=== PATIENT | female | born 1970 | race Caucasian/White ===

== ENCOUNTER 2021-09-19 08:51 | Outpatient (CLI) | payer MEDICARE, MEDICAID, SELFPAY ==
[2021-09-19] MEDS: Albuterol HFA 18 GM 200 PUFF INH IH (14:28)
[2021-09-19] MEDS: Inhaler, Assist Device 1 EACH MC (14:28)
== END 2021-09-19 08:52 | disposition home or self-care (01) ==
PROVIDERS: PCP Nurse Practitioner; Visit Provider Student in an Organized Health Care Education/Training Program
DX: J44.9 Chronic obstructive pulmonary disease, unspecified (principal)
CPT/HCPCS: 94060; 94726; 94729

== ENCOUNTER 2021-12-19 16:56 | Outpatient (REF) | payer MEDICARE, MEDICAID, SELFPAY ==
[2021-12-21 08:00] LABS: IgE 62 IU/mL (<158)
[2021-12-22 14:20] LABS: Bermuda Grass IgE <0.35 kU/L; Cat Epithelium IgE <0.35 kU/L; Cedar, IgE <0.35 kU/L
[2021-12-22 16:29] LABS: Horse Dander, IgE <0.35 kU/L; House Dust/Greer Lab, IgE <0.35 kU/L; Silver Birch IgE 0.84 kU/L
[2021-12-22 17:37] LABS: Aspergillus Fumigatus IgE <0.35 kU/L; Cockroach IgE <0.35 kU/L; Cottonwood IgE <0.35 kU/L; D Pteronyssinus IgE <0.35 kU/L; Dog Dander IgE <0.35 kU/L; Short Ragweed IgE <0.35 kU/L
[2021-12-22 17:38] LABS: Botrytis Cinerea IgE <0.35 kU/L; False Ragweed, IgE <0.35 kU/L; Goldenrod IgE <0.35 kU/L; White Pine, IgE <0.35 kU/L
[2021-12-22 17:47] LABS: Douglas Fir, IgE <0.35 kU/L
== END 2021-12-19 16:57 | disposition home or self-care (01) ==
LOC: LBN 16:56
PROVIDERS: PCP Nurse Practitioner; Visit Provider Student in an Organized Health Care Education/Training Program
DX: J30.89 Other allergic rhinitis (principal); J44.9 Chronic obstructive pulmonary disease, unspecified; Z01.82 Encounter for allergy testing
CPT/HCPCS: 82785; 86003

== ENCOUNTER → 2023-09-20 09:52 | Outpatient (BNVA) | payer MEDICARE, MEDICAID, SELFPAY | PROVIDERS: PCP Nurse Practitioner; Referring Provider Nurse Practitioner; Visit Provider Student in an Organized Health Care Education/Training Program | DX: J44.9 Chronic obstructive pulmonary disease, unspecified (principal); J30.9 Allergic rhinitis, unspecified; Z14.8 Genetic carrier of other disease; Z87.891 Personal history of nicotine dependence | CPT/HCPCS: 99214 ==

== ENCOUNTER → 2024-03-18 09:44 | Outpatient (BNVA) | payer MEDICARE, MEDICAID, SELFPAY | PROVIDERS: PCP Nurse Practitioner; Referring Provider Nurse Practitioner; Visit Provider Internal Medicine | DX: J44.9 Chronic obstructive pulmonary disease, unspecified (principal); G47.33 Obstructive sleep apnea (adult) (pediatric); J30.9 Allergic rhinitis, unspecified; Z87.891 Personal history of nicotine dependence; Z14.8 Genetic carrier of other disease | CPT/HCPCS: 99215 ==

== ENCOUNTER 2024-03-25 02:47 | Outpatient (CLI) | payer MEDICARE, MEDICAID, SELFPAY ==
[2024-03-25] MEDS: Levalbuterol HFA 15 GM INH 4 PUFF IH (09:31)
[2024-03-25] MEDS: Inhaler, Assist Device 1 EACH MC (09:31)
--- NOTE | 2024-03-25 12:55 | PFT_ITS ---
Date of service: 03/25/24 Time of Service: 08:08 Pulmonary Function Test Result Requesting Provider Darron Navas MD Indications: Asthma COPD dyspnea, chronic cough. Seasonal allergies, [id number] smoker, quit 20 years ago. Test done on [employer]. Albuterol held before test Interpretation Spirometry: Spirometry pre and postbronchodilator showed: 1. Mild airway obstruction at baseline, which normalized postbronchodilator. 2. No clinically significant response to bronchodilator; the FEV1 increased 6%, FVC 0%. 3. The household appliances service technician comments indicated a good patient effort. 4. The test met [employer] [employer] standards of spirometry, and my personal review of the volume-time curve and flow-volume loop corroborates these results. Lung Volumes: Lung volume studies by plethysmography show: 1. No evidence of restriction. 2. Mild hyperinflation as indicated by RV and RV/TLC 130% predicted. 3. Severely decreased expiratory reserve volume, likely related to obesity. BMI 37.8 during this test. Diffusion Capacity: Diffuse and capacity by single breath carbon monoxide technique was normal. No gas exchange abnormality. Impression Normal spirometry after bronchodilator. In the presence of mild hyperinflation, this is most compatible with incompletely treated asthma. Clinical Correlation and radiographic correlation of the hyperinflation is recommended. Consider increasing the dose of inhaled corticosteroid to better control hyperinflation and the baseline mild airway obstruction.
== END 2024-03-25 02:48 | disposition home or self-care (01) ==
LOC: RT 02:47
PROVIDERS: PCP Nurse Practitioner; Visit Provider Internal Medicine
DX: J44.9 Chronic obstructive pulmonary disease, unspecified (principal); R05.3 Chronic cough; Z87.891 Personal history of nicotine dependence
CPT/HCPCS: 00123; 94060; 94726; 94729

== ENCOUNTER → 2024-04-01 10:09 | Outpatient (BNVA) | payer MEDICARE, MEDICAID, SELFPAY | PROVIDERS: PCP Nurse Practitioner; Referring Provider Nurse Practitioner; Visit Provider Physician Assistant Surgical | DX: J44.9 Chronic obstructive pulmonary disease, unspecified (principal); Z14.8 Genetic carrier of other disease; Z87.891 Personal history of nicotine dependence; J30.9 Allergic rhinitis, unspecified | CPT/HCPCS: 99214 ==

== ENCOUNTER → 2024-07-31 09:01 | Outpatient (BNVA) | payer MEDICARE, MEDICAID, SELFPAY | PROVIDERS: PCP Nurse Practitioner; Referring Provider Nurse Practitioner; Visit Provider Physician Assistant Surgical | DX: J44.9 Chronic obstructive pulmonary disease, unspecified (principal); Z14.8 Genetic carrier of other disease; Z87.891 Personal history of nicotine dependence | CPT/HCPCS: 99214 ==

== ENCOUNTER → 2024-12-10 11:36 | Outpatient (BNVA) | payer MEDICARE, MEDICAID, SELFPAY | PROVIDERS: PCP Nurse Practitioner; Referring Provider Nurse Practitioner; Visit Provider Physician Assistant Surgical | DX: J44.9 Chronic obstructive pulmonary disease, unspecified (principal); Z14.8 Genetic carrier of other disease; Z87.891 Personal history of nicotine dependence; J30.9 Allergic rhinitis, unspecified | CPT/HCPCS: 99214 ==

== ENCOUNTER 2025-03-30 04:04 | Outpatient (CLI) | payer MEDICARE, MEDICAID, SELFPAY ==
--- NOTE | 2025-04-02 10:14 | W.NUTRFU ---
Date of service: 03/30/25 Time of Service: 13:00 Nutrition Note NOTE: MEt with Vinayak re: glucose mgt for diabetes. We reviewed her usual diet - initially assessed as lower in fiber. Discussed tips like added sugar limits, keeping grain choices high in fiber (At least 3g per serving) and eating more traditional grains than products. REviewed optimal protein intake and help achieving this with whey and collagen protein powders if she wants to try. encouraged at least 30g fiber daily. sent sample menus for review with resources in an email Vinayak has my contact info should she want follow up Time Spent in Nutritional Counseling and Treatment: 25 min
== END 2025-03-30 04:05 | disposition home or self-care (01) ==
LOC: DS 04:04
PROVIDERS: PCP Nurse Practitioner; Visit Provider Dietitian, Registered
DX: E11.39 Type 2 diabetes mellitus with other diabetic ophthalmic complication (principal)
CPT/HCPCS: 00123; 97802

== ENCOUNTER → 2025-06-10 08:46 | Outpatient (BNVA) | payer MEDICARE, MEDICAID, SELFPAY | PROVIDERS: PCP Nurse Practitioner; Referring Provider Nurse Practitioner; Visit Provider Physician Assistant Surgical | DX: Z23 Encounter for immunization (principal); J44.9 Chronic obstructive pulmonary disease, unspecified; Z14.8 Genetic carrier of other disease; J30.9 Allergic rhinitis, unspecified; Z87.891 Personal history of nicotine dependence | CPT/HCPCS: 99214; 90471; 90656 ==